=== PATIENT | male | born 1940 | race Caucasian/White ===

== ENCOUNTER 2018-02-25 10:22 | Day surgery (SDC) | payer MEDICARE, OTHER, SELFPAY ==
[2018-02-25 13:18] VITALS: BP 176/82; PULSE 63; RESP 14; TEMP 36.1; O2SAT 100; BMI 26.2
[2018-02-25] MEDS: PROPARACAINE 0.5% OPHTH SOL 2 DROPS EYE-OP (13:20)
[2018-02-25] MEDS: CATARACT EYE COMPOUND (10 DROPS/SYRINGE) 3 DROPS EYE-OP (13:27)
--- NOTE | 2018-02-25 14:12 | PM.PREOP ---
Pre-operative Note Interval Note Changes: No
--- NOTE | 2018-02-25 14:12 | PM.OP.1 ---
Operative Date/Time/Diagnoses Pre-op diagnosis: Nuclear cataract right eye Procedure & Clinicians Procedure: Cataract Surgery Same procedure as scheduled: Yes Surgeon: Marcus Bañuelos Anesthesia Type: MAC +/- and Sedation Operative Notes Procedure in detail: Patient brought to the operating suite. Tetracaine drops placed in the right eye. Marking instrument was used to roland the verticle and horizontal meridian. Patient was prepped and draped in sterile manner. Wire lid speculum was placed in the eye. Marking instrument was used to roland the 10 degree meridian. Betadine drops were placed on the eye. This was irrigated. Lidocaine jelly was placed on the eye. A paracentesis port was created with a side-port blade. 0.1 mL 1% preservative free lidocaine was injected into the anterior chamber. The anterior chamber was deepened with viscoelastic. 2.6 mm keratome was used to create a temporal clear corneal incision. Cystotome and Utrata forceps were used to create continuous tear capsulorrhexis. Balanced salt solution was used to hydro dissect the nucleus. The phacoemulsification handpiece was inserted and the nucleus was removed using the stop and chop technique. The irrigation aspiration handpiece was inserted and the remaining cortex was removed. Anterior chamber was deepened with viscoelastic. An Sethi [id number] intraocular lens with a power of 13.0 was injected into the capsular bag. Irrigation aspiration handpiece was inserted and the remaining viscoelastic was removed. Lens was rotated to the 10 degree meridian. The incision was hydrated with balanced salt solution and found to be leak free with pressure with Weck-Lizet sponges. 0.1 mL Vigamox injected anterior chamber. 0.3 mL Kenalog 10 mg was injected subconjunctivally. Lid speculum was removed. The patient left the operating room in excellent condition. Complications: none Condition: stable Disposition: same day surgery
--- NOTE | 2018-02-25 14:13 | P.OP.PRE_ITS ---
Pre-operative Note Interval Note Changes: No
[2018-02-25] MEDS: TRIAMCINOLONE 50 MG/5 ML VIAL INJ (14:31)
[2018-02-25] MEDS: PHENYLEPHRINE/LIDOCAINE VIAL (OR) 0.2 ML EYE-OP (14:31)
[2018-02-25] MEDS: MOXIFLOXACIN OPHTH DROPS 3 ML BOTTLE 2 DROPS INJ (14:31)
[2018-02-25] MEDS: TETRACAINE 0.5% OPHTH DROPS 15 ML 2 DROPS EYE-RIGHT (14:32)
[2018-02-25] MEDS: LIDOCAINE JELLY 2% 5 ML 1 APPLIC TOP (14:32)
[2018-02-25] MEDS: CHONDROIDTIN/SOD HYALURONATE 1.05 ML SYRINGE INTRAOCULA (14:32)
[2018-02-25] MEDS: BALANCED SALT IRRIG SOLN NO.2 500 ML, EPINEPHrine 1 MG IRR (14:33)
[2018-02-25 14:42] VITALS: BP 138/78; PULSE 81; RESP 15; TEMP 36.2; O2SAT 96
[2018-02-25 14:59] VITALS: BP 167/87; PULSE 69; RESP 16; TEMP 36.2; O2SAT 98
== END 2018-02-25 15:08 ==
LOC: OR 10:25
PROVIDERS: Visit Provider Ophthalmology
DX: H25.11 Age-related nuclear cataract, right eye (principal); I25.2 Old myocardial infarction; I10 Essential (primary) hypertension; E78.5 Hyperlipidemia, unspecified
CPT/HCPCS: J0171; J2250; J3010; J3301; V2787

== ENCOUNTER 2018-03-11 09:09 | Day surgery (SDC) | payer MEDICARE, OTHER, SELFPAY ==
[2018-03-11] MEDS: PROPARACAINE 0.5% OPHTH SOL 2 DROPS EYE-OP (10:20)
[2018-03-11 10:21] VITALS: BP 186/78; PULSE 66; RESP 16; TEMP 36.6; O2SAT 99; BMI 26.3
[2018-03-11] MEDS: CATARACT EYE COMPOUND (10 DROPS/SYRINGE) 3 DROPS EYE-OP (10:30)
--- NOTE | 2018-03-11 11:17 | P.OP.PRE_ITS ---
Pre-operative Note Interval Note Changes: No
--- NOTE | 2018-03-11 11:17 | PM.PREOP ---
Pre-operative Note Interval Note Changes: No
--- NOTE | 2018-03-11 11:17 | PM.OP.1 ---
Operative Date/Time/Diagnoses Pre-op diagnosis: Nuclear Cataract Left eye Post-op diagnosis: same Procedure & Clinicians Surgeon: Marcus Bañuelos Anesthesia Type: MAC +/- and Sedation Operative Notes Procedure in detail: Patient brought to the operating suite. Tetracaine drops placed in the left eye. Marking instrument was used to roland the vertical and horizontal meridians. Patient was prepped and draped in sterile manner. Wire lid speculum was placed in the eye. Betadine drops were placed on the eye. This was irrigated. Lidocaine jelly was placed on the eye. A paracentesis port was created with a side-port blade. 0.1 mL 1% preservative free lidocaine was injected into the anterior chamber. The anterior chamber was deepened with viscoelastic. 2.6 mm keratome was used to create a temporal clear corneal incision. Cystotome and Utrata forceps were used to create continuous tear capsulorrhexis. Balanced salt solution was used to hydro dissect the nucleus. The phacoemulsification handpiece was inserted and the nucleus was removed using the stop and chop technique. The irrigation aspiration handpiece was inserted and the remaining cortex was removed. Anterior chamber was deepened with viscoelastic. An Sethi [id number] intraocular lens with a power of 13.5 was injected into the capsular bag. Irrigation aspiration handpiece was inserted and the remaining viscoelastic was removed. The lens was rotated to the 180 degree meridian. Incision was hydrated with balanced salt solution and found to be leak free with pressure with Weck-Lizet sponges. 0.1 mL Vigamox injected anterior chamber. 0.3 mL Kenalog 10 mg was injected subconjunctivally. Lid speculum was removed. The patient left the operating room in excellent condition. Complications: none Condition: stable Disposition: same day surgery
--- NOTE | 2018-03-11 11:25 | SUR.OPER ---
Supine on eye stretcher, head on extension cradle secured with tape. Arms tucked at sides with blanket. Pillow under knees.
[2018-03-11] MEDS: CHONDROIDTIN/SOD HYALURONATE 1.05 ML SYRINGE INTRAOCULA (11:27)
[2018-03-11] MEDS: PHENYLEPHRINE/LIDOCAINE VIAL (OR) 0.2 ML EYE-OP (11:28)
[2018-03-11] MEDS: MOXIFLOXACIN OPHTH DROPS 3 ML BOTTLE 2 DROPS INJ (11:28)
[2018-03-11] MEDS: LIDOCAINE JELLY 2% 5 ML 1 APPLIC TOP (11:28)
[2018-03-11] MEDS: TETRACAINE 0.5% OPHTH DROPS 15 ML 2 DROPS EYE-LEFT (11:29)
[2018-03-11] MEDS: TRIAMCINOLONE 50 MG/5 ML VIAL INJ (11:29)
[2018-03-11] MEDS: BALANCED SALT IRRIG SOLN NO.2 500 ML, EPINEPHrine 1 MG IRR (11:29)
[2018-03-11 11:45] VITALS: BP 136/87; PULSE 81; RESP 16; TEMP 36.6; O2SAT 99
== END 2018-03-11 11:57 | disposition home or self-care (01) ==
LOC: OR 09:11
PROVIDERS: Visit Provider Ophthalmology
DX: H25.12 Age-related nuclear cataract, left eye (principal); I25.2 Old myocardial infarction; I10 Essential (primary) hypertension; E78.5 Hyperlipidemia, unspecified
CPT/HCPCS: J0171; J2250; J3010; J3301; V2787